=== PATIENT | female | born 1955 | race Caucasian/White ===

== ENCOUNTER 2017-07-01 05:21 | Inpatient (IN) | payer OTHER ==
[~2017-07-01] VITALS: Ht 160 cm; Wt 94.8 kg
[~2017-07-01 05:21] MED LIST: GLIP10TA11 PO; LOSA50TA3 PO; OMEP20CA10 PO; OXYB5TAB11 PO; SIMV10TA2 PO
[2017-07-01] MEDS ORDERED: CEFAZOLIN 2 GM IVPB PREMIX 50 ML IV ONE ×2 (05:50→07:00)
[2017-07-01] MEDS ORDERED: GABAPENTIN 300 MG CAPSULE ONE (05:51)
[2017-07-01] MEDS ORDERED: CELECOXIB 200 MG CAPSULE ONE (05:51)
[2017-07-01] MEDS ORDERED: oxyCODONE HCL 10 MG TAB.ER.12H PO ONE ×2 (05:52→07:00)
[2017-07-01] MEDS ORDERED: ACETAMINOPHEN 500 MG TABLET ONE (05:52)
[2017-07-01] MEDS ORDERED: TRANEXAMIC ACID 650 MG TABLET ONE (05:53)
[2017-07-01] MEDS ORDERED: POLYMYXIN 500,000/BACIT.10,000 UNITS in NS IRR 1 L IR ONE (06:45)
[2017-07-01] MEDS ORDERED: KETOROLAC TROMETHAMINE 30 MG VIAL ONE (06:59)
[2017-07-01] MEDS ORDERED: MUPIROCIN 2% TOPICAL OINTMENT 22 GM TP PRN (07:00)
[2017-07-01] MEDS ORDERED: LR 1,000 ML IV ONE (07:00)
[2017-07-01] MEDS ORDERED: VANCOMYCIN 1 GM/NS 250 ML PREMIX BAG IV ONE (07:00)
[2017-07-01] MEDS ORDERED: TRANEXAMIC ACID 650 MG TABLET PO ONE (07:00)
[2017-07-01] MEDS ORDERED: GABAPENTIN 300 MG CAPSULE PO ONE (07:00)
[2017-07-01] MEDS ORDERED: CELECOXIB 200 MG CAPSULE PO ONE (07:00)
[2017-07-01] MEDS ORDERED: ACETAMINOPHEN 500 MG TABLET PO ONE (07:00)
[2017-07-01] MEDS ORDERED: fentaNYL CITRATE 250 MCG/5 ML AMP IV ONE (07:15)
[2017-07-01] MEDS ORDERED: VANCOMYCIN HCL 1000 MG/VIAL IV ONE (07:15)
[2017-07-01] MEDS ORDERED: ROCURONIUM BROMIDE 10 MG/ML (ZEMURON) IV ONE (07:15)
[2017-07-01] MEDS ORDERED: MIDAZOLAM HCL 5 MG/5 ML VIAL IVP ONE (07:15)
[2017-07-01] MEDS ORDERED: MORPHINE SULFATE 10MG/10ML PF AMP EP ONE (07:15)
[2017-07-01] MEDS ORDERED: KETOROLAC TROMETHAMINE 30 MG VIAL IVP ONE (07:15)
[2017-07-01] MEDS ORDERED: GLYCOPYRROLATE 0.2 MG/ML VIAL IJ ONE (07:15)
[2017-07-01] MEDS ORDERED: LIDOCAINE 2%, 20 ML MDV INJ ONE (07:15)
[2017-07-01] MEDS ORDERED: SEVOFLURANE 15 MIN GAS INH ONE (07:15)
[2017-07-01] MEDS ORDERED: NEOSTIGMINE METHYLSULFATE 1 MG/ML, 10 ML VIAL IVP ONE (07:15)
[2017-07-01] MEDS ORDERED: NS 100 ML BAG IV ONE (07:15)
[2017-07-01] MEDS ORDERED: EPINEPHrine 1 MG/ML AMP IVP ONE (07:15)
[2017-07-01] MEDS ORDERED: BUPIVACAINE /EPINEPHRINE/PF 0.5% 30 ML VIAL INJ ONE (07:15)
[2017-07-01] MEDS ORDERED: LR 1,000 ML IV.SOLN IV ONE (07:15)
[2017-07-01] MEDS ORDERED: VANCOMYCIN HCL 1,000 MG in NS 250 ML IV ONE (07:15)
[2017-07-01] MEDS ORDERED: ONDANSETRON HCL 4 MG/2 ML VIAL IVP ONE ×2 (07:15)
[2017-07-01] MEDS ORDERED: ROPIVACAINE HCL/PF 5 MG/ML 0.5% 30 ML VIAL INJ ONE (07:15)
[2017-07-01] MEDS ORDERED: LR 1,000 ML IV SCH (08:03)
[2017-07-01] MEDS ORDERED: HYDROmorphone 2 MG/ML VIAL IVP PRN (08:15)
[2017-07-01] MEDS ORDERED: HYDROmorphone 1 MG INJ. 1 MG/ML AMPUL IVP PRN ×2 (08:15)
[2017-07-01] MEDS ORDERED: METOCLOPRAMIDE HCL 10 MG/2 ML VIAL IVP PRN (08:15)
[2017-07-01] MEDS ORDERED: MORPHINE 4 MG/ML INJ. SYRINGE IVP PRN (09:15)
[2017-07-01] MEDS ORDERED: oxyCODONE HCL 5 MG TABLET PO PRN (09:15)
[2017-07-01] MEDS ORDERED: SENNOSIDES 8.6 MG TABLET PO PRN (09:15)
[2017-07-01] MEDS ORDERED: DIPHENHYDRAMINE HCL 25 MG CAPSULE PO PRN (09:15)
[2017-07-01] MEDS ORDERED: PROMETHAZINE HCL 25 MG/ML AMP IVP PRN (09:15)
[2017-07-01] MEDS ORDERED: ONDANSETRON HCL 4 MG/2 ML VIAL IVP PRN (09:15)
[2017-07-01] MEDS ORDERED: NALOXONE HCL 0.4 MG/ML AMP (NARCAN) IVP ONE (10:30)
[2017-07-01] MEDS ORDERED: DEXAMETHASONE SOD PHOSPHATE 4 MG/ML VIAL IVP ONE (10:30)
[2017-07-01] MEDS ORDERED: DEXAMETHASONE SOD PHOSPHATE 4 MG/ML VIAL ONE (10:30)
[2017-07-01] MEDS ORDERED: FLUMAZENIL 0.1 MG/ML IVP ONE ×2 (10:30→10:31)
[2017-07-01] MEDS ORDERED: NALOXONE HCL 0.4 MG/ML AMP (NARCAN) ONE (10:31)
[2017-07-01] MEDS ORDERED: ALBUTEROL SULFATE 0.083% 2.5 MG/3 ML VIAL.NEB INH ONE (11:00)
[2017-07-01 11:30] VITALS: BP_SYST 114
[2017-07-01 11:38] VITALS: BP_SYST 114
[2017-07-01 12:32] VITALS: BP_SYST 151
[2017-07-01] MEDS: LR 1,000 ML IV SCH ×2 (14:32→22:11)
[2017-07-01] MEDS: ACETAMINOPHEN 500 MG TABLET PO SCH ×2 (14:33→21:43)
[2017-07-01] MEDS ORDERED: TRANEXAMIC ACID 1,000 MG/10 ML VIAL IV ONE (17:15)
[2017-07-01] MEDS: VANCOMYCIN HCL 1 GM/NS PREMIX 250 ML IV SCH (18:08)
[2017-07-01 20:00] VITALS: BP_SYST 122
[2017-07-01] MEDS ORDERED: MUPIROCIN NASAL 2% OINT. 1 GM NS SCH (21:00)
[2017-07-01] MEDS: GABAPENTIN 300 MG CAPSULE PO SCH (21:43)
[2017-07-01] MEDS: CELECOXIB 200 MG CAPSULE PO SCH (21:50)
[2017-07-01] MEDS: INSULIN REGULAR, HUMAN 100 UNITS/ML, 10 ML VIAL (novoLIN R) SUBCUT PRN (21:58)
[2017-07-02 00:59] VITALS: BP_SYST 130
[2017-07-02 03:27] VITALS: BP_SYST 134
[2017-07-02] MEDS: LR 1,000 ML IV SCH ×2 (04:43→15:20)
[2017-07-02] MEDS: VANCOMYCIN HCL 1 GM/NS PREMIX 250 ML IV SCH (05:49)
[2017-07-02] MEDS: KETOROLAC TROMETHAMINE 15 MG VIAL IVP PRN ×2 (05:49→21:34)
[2017-07-02 06:10] LABS: BASOPHILS % (AUTO) 0.1 % (0.0-2.0); HEMATOCRIT 35.3 % (36-48); HEMOGLOBIN 11.8 g/dL (12.0-16.0); LYMPHOCYTES # (AUTO) 1.2 K/uL (1.0-5.5); LYMPHOCYTES % (AUTO) 9.4 % (20.5-51.5); MEAN CORPUSCULAR HEMOGLOBIN 30 pg (27-31); MEAN CORPUSCULAR HGB CONC 34 % (32-36); MEAN CORPUSCULAR VOLUME 89 fL (79.0-98.0); MONOCYTES # (AUTO) 0.7 K/uL (0.0-1.0); MONOCYTES % (AUTO) 5.6 % (1.7-9.3); NEUTROPHILS % (AUTO) 84.9 % (40.0-70.0); PLATELET COUNT (AUTO) 126 K/uL (130-430); RED BLOOD CELL COUNT(AUTO) 3.98 MIL/uL (4.2-6.2); RED CELL DISTRIBUTION WIDTH 12.2 % (9.0-15.0); WHITE BLOOD COUNT (AUTO) 12.9 K/uL (4.8-10.8)
[2017-07-02 06:17] LABS: CHLORIDE 109 mmol/L (98-107); CREATININE 0.69 mg/dL (0.55-1.30); GLUCOSE 126 mg/dL (70-99); POTASSIUM 4.4 mmol/L (3.5-5.1); SODIUM SERUM 143 mmol/L (136-145); UREA NITROGEN, BLOOD 10 mg/dL (8-21)
[2017-07-02 06:24] LABS: ANION GAP < 3 (5-15); GFR AFRICAN AMERICAN 111 mL/min (>90)
[2017-07-02] MEDS: SIMVASTATIN 10 MG TABLET PO SCH (08:37)
[2017-07-02] MEDS: ACETAMINOPHEN 500 MG TABLET PO SCH ×3 (08:37→21:30)
[2017-07-02] MEDS: OMEPRAZOLE 20 MG CAPSULE.DR (PriLOSEC) PO SCH (08:37)
[2017-07-02] MEDS: LOSARTAN POTASSIUM 50 MG TABLET (COZAAR) PO SCH (08:37)
[2017-07-02] MEDS: CELECOXIB 200 MG CAPSULE PO SCH ×2 (08:37→21:30)
[2017-07-02] MEDS: OXYBUTYNIN CHLORIDE 5 MG TABLET PO SCH (08:37)
[2017-07-02 11:44] VITALS: BP_SYST 137
[2017-07-02] MEDS: RIVAROXABAN 10 MG TABLET PO SCH (12:55)
[2017-07-02] MEDS: INSULIN REGULAR, HUMAN 100 UNITS/ML, 10 ML VIAL (novoLIN R) SUBCUT PRN ×2 (12:56→21:48)
[2017-07-02 15:40] VITALS: BP_SYST 136
[2017-07-02 20:00] VITALS: BP_SYST 145
[2017-07-02] MEDS: GABAPENTIN 300 MG CAPSULE PO SCH (21:29)
[2017-07-02] MEDS: MUPIROCIN 2% TOPICAL OINTMENT 22 GM TP SCH (21:32)
[2017-07-02 23:36] VITALS: BP_SYST 134
[2017-07-03 03:46] VITALS: BP_SYST 129
[2017-07-03] MEDS: LR 1,000 ML IV SCH (05:27)
[2017-07-03] MEDS: KETOROLAC TROMETHAMINE 15 MG VIAL IVP PRN (05:56)
[2017-07-03 07:26] LABS: HEMATOCRIT 33.2 % (36-48); HEMOGLOBIN 11.1 g/dL (12.0-16.0); MEAN CORPUSCULAR HEMOGLOBIN 30 pg (27-31); MEAN CORPUSCULAR HGB CONC 33 % (32-36); MEAN CORPUSCULAR VOLUME 89 fL (79.0-98.0); RED BLOOD CELL COUNT(AUTO) 3.72 MIL/uL (4.2-6.2); RED CELL DISTRIBUTION WIDTH 12.8 % (9.0-15.0); WHITE BLOOD COUNT (AUTO) 11.7 K/uL (4.8-10.8)
[2017-07-03 07:30] LABS: PLATELET COUNT (AUTO) 125 K/uL (130-430)
[2017-07-03 07:57] LABS: CALCIUM 8.4 mg/dL (8.4-11.0); CREATININE 0.77 mg/dL (0.55-1.30); POTASSIUM 3.9 mmol/L (3.5-5.1)
[2017-07-03 08:00] VITALS: BP_SYST 137
[2017-07-03] MEDS: CELECOXIB 200 MG CAPSULE PO SCH (08:05)
[2017-07-03] MEDS: SIMVASTATIN 10 MG TABLET PO SCH (08:05)
[2017-07-03] MEDS: OMEPRAZOLE 20 MG CAPSULE.DR (PriLOSEC) PO SCH (08:05)
[2017-07-03] MEDS: OXYBUTYNIN CHLORIDE 5 MG TABLET PO SCH (08:05)
[2017-07-03] MEDS: ACETAMINOPHEN 500 MG TABLET PO SCH ×2 (08:06→14:09)
[2017-07-03] MEDS: LOSARTAN POTASSIUM 50 MG TABLET (COZAAR) PO SCH (08:07)
[2017-07-03] MEDS: MUPIROCIN 2% TOPICAL OINTMENT 22 GM TP SCH (08:08)
[2017-07-03 10:02] LABS: ATYPICAL LYMPHOCYTES % 0 % (0-0); BAND % (MANUAL) 0 % (0-6); BASOPHILS % (MANUAL) 0 % (0-2); EOSINOPHILS % (MANUAL) 4 % (0-7); LYMPHOCYTES % (MANUAL) 34 % (20-46); MONOCYTES % (MANUAL) 8 % (0-11)
[2017-07-03] MEDS: oxyCODONE HCL 5 MG TABLET PO PRN ×2 (11:18→16:10)
[2017-07-03] MEDS: RIVAROXABAN 10 MG TABLET PO SCH (11:21)
[2017-07-03] MEDS ORDERED: LIDOCAINE 1% 10 MG/ML, 20 ML MDV INJ ONE (12:00)
[2017-07-03] MEDS ORDERED: LACTULOSE 20 GM/30 ML UDC PO ONE (12:00)
[2017-07-03 12:55] VITALS: BP_SYST 158
[2017-07-03] MEDS: INSULIN REGULAR, HUMAN 100 UNITS/ML, 10 ML VIAL (novoLIN R) SUBCUT PRN (13:21)
[2017-07-03 16:11] VITALS: BP_SYST 141; BP_SYST 162
[2017-07-03 16:33] VITALS: BP_SYST 138
== END 2017-07-03 17:10 | DRG 470 ==
LOC: SMU 05:21 → STU 11:26 → SMU 07-02 08:09
PROVIDERS: ADMIT Orthopaedic Surgery; ATTEND Orthopaedic Surgery
PROC: 3E0T3CZ (ICD-10-PCS; 2017-07-01)
PROC: 0SRC0J9 Replacement of Right Knee Joint with Synthetic Substitute, Cemented, Open Approach (ICD-10-PCS; principal; 2017-07-01 07:30)
DX: M17.11 Unilateral primary osteoarthritis, right knee (principal); I10 Essential (primary) hypertension; K21.9 Gastro-esophageal reflux disease without esophagitis; E11.40 Type 2 diabetes mellitus with diabetic neuropathy, unspecified; E78.00 Pure hypercholesterolemia, unspecified; E66.01 Morbid (severe) obesity due to excess calories; Z68.37 Body mass index [BMI] 37.0-37.9, adult; Z91.048 Other nonmedicinal substance allergy status; Z88.8 Allergy status to other drugs, medicaments and biological substances
CPT/HCPCS: 36415; 80048; 82962; 85007; 85025; 85027; 87081; 88305; 88311; 94010; 94760; 97039; 97110-GP; 97116-GP; 97530-GP; C1713; C1776; J0171; J0690; J1100; J1815; J1885; J2001; J2250; J2270; J2274; J2310; J2405; J2710; J3010; J3370; J3490; J7120